=== PATIENT | male | born 1995 | race Two or more races ===

== ENCOUNTER 2017-04-18 12:26 | Emergency (ER) | payer MEDICAID ==
[~2017-04-18] VITALS: Ht 170.2 cm; Wt 65.8 kg
[2017-04-18] MEDS ORDERED: IBUPROFEN600 MG ORAL (12:38)
[2017-04-18 12:46] VITALS: BP 125/68
[2017-04-18 12:47] VITALS: BP 125/68
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
--- NOTE | 2017-04-19 11:16 | Cardiology Report ---
APPROVED REPORT EKG Measurement Heart [id number] Normal sinus rhythm Normal ECG
== END 2017-04-18 12:48 | disposition home or self-care (01) ==
LOC: EMR 12:36
DX: R07.89 Other chest pain (principal)
CPT/HCPCS: 93005; 99284

== ENCOUNTER 2017-09-13 06:52 | Emergency (ER) | payer MEDICAID, OTHER ==
[~2017-09-13] VITALS: Ht 177.8 cm; Wt 90.7 kg
[~2017-09-13 06:52] MED LIST: IBUPROFEN600 MG ORAL
[2017-09-13] MEDS ORDERED: NKM (07:01)
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
[2017-09-13] MEDS ORDERED: IBUPROFEN600 MG ORAL (07:24)
[2017-09-13] MEDS ORDERED: Tetanus/Diptheria/Pertussis Vaccine 0.5ml Syr IM ONE (07:30)
[2017-09-13 07:45] VITALS: BP 118/73
[2017-09-13 07:57] VITALS: BP 118/73
--- NOTE | 2017-09-13 09:27 | Diagnostic Imaging Report ---
Indication: Left wrist pain Technique: XRAY WRIST MIN 3V LEFT Comparison: None Findings: There is no radiographically evident fracture or dislocation. Bone mineralization is normal. Soft tissues are grossly unremarkable. Impression: No radiographically evident fracture or dislocation. If there is clinical concern for radiographically occult scaphoid injury, followup/further evaluation recommended.
== END 2017-09-13 07:45 | disposition home or self-care (01) ==
LOC: EMR 07:30
DX: S60.212A Contusion of left wrist, initial encounter (principal); S50.812A Abrasion of left forearm, initial encounter; Y04.2XXA Assault by strike against or bumped into by another person, initial encounter; Y92.89 Other specified places as the place of occurrence of the external cause; Y99.0 Civilian activity done for income or pay
CPT/HCPCS: 90471; 90715; 99283

== ENCOUNTER 2018-07-20 05:35 | Emergency (ER) | payer MEDICAID, OTHER ==
[~2018-07-20] VITALS: Ht 177.8 cm; Wt 102.1 kg
[~2018-07-20 05:35] MED LIST changes: +NKM
[2018-07-20 05:59] VITALS: BP 159/100
[2018-07-20 06:47] LABS: ANION GAP 7 mmol/L (5-15); BLOOD UREA NITROGEN 14 mg/dL (7-18); CALCIUM 9.1 MG/DL (8.5-10.1); CARBON DIOXIDE 30 MMOL/L (21-32); CHLORIDE 103 MMOL/L (98-107); CREATININE 0.9 MG/DL (0.55-1.30); POTASSIUM 3.9 MMOL/L (3.5-5.1); SODIUM 139 MMOL/L (136-145)
[2018-07-20 06:51] LABS: APPEARANCE,URINE CLEAR; BILIRUBIN, URINE NEGATIVE (NEGATIVE); GLUCOSE, URINE (UA) NEGATIVE (NEGATIVE); KETONES,URINE NEGATIVE (NEGATIVE); LEUKOCYTE ESTERASE ,URINE NEGATIVE (NEGATIVE); NITRITE,URINE NEGATIVE (NEGATIVE); PH,URINE 5 (4.5-8.0); PROTEIN,URINE 4+ (NEGATIVE); UROBILINOGEN,URINE NORMAL MG/DL (0.0-1.0)
[2018-07-20 07:00] VITALS: BP 127/78
[2018-07-20] MEDS ORDERED: ZOFRAN4 MG ORAL (07:02)
[2018-07-20 07:03] LABS: BASOPHILS % (AUTO) 1.4 % (0.0-2.0); EOSINOPHILS % (AUTO) 2.1 % (0.0-3.0); HEMATOCRIT 50.9 % (42.0-52.0); HEMOGLOBIN 17.4 G/DL (14.2-18.0); LYMPHOCYTES % (AUTO) 23.9 % (20.0-45.0); MEAN CORPUSCULAR VOLUME 88 FL (80-99); MONOCYTES % (AUTO) 7.4 % (1.0-10.0); NEUTROPHILS % (AUTO) 65.1 % (45.0-75.0); PLATELET COUNT 359 K/UL (150-450); RED BLOOD COUNT 5.78 M/UL (4.70-6.10); RED CELL DISTRIBUTION WIDTH 11.7 % (11.6-14.8); WHITE BLOOD COUNT 11.2 K/UL (4.8-10.8)
--- NOTE | 2018-07-20 07:03 | Emergency Room Report ---
History of Present Illness General Chief Complaint: Dizziness Source: Patient Present Illness HPI Is a 23-year-old male with no past mental history. He works in security here. Around 4 AM he felt dizzy and lightheaded. [place] nauseous but no vomiting. No new fever or chills. No diarrhea. When he checked his blood pressure was elevated. Worse with walking. Never had this before. Allergies: Coded Allergies: No Known Allergies (Unverified , 04/18/17) Patient History Past Medical History: see triage record, old chart reviewed Past Surgical History: none Pertinent Family History: HTN Social History: Denies: smoking Immunizations: UTD Reviewed Nursing Documentation: PMH: Agreed; PSxH: Agreed Nursing Documentation-PMH Past Medical History: No Stated History Review of Systems Eye: Denies: eye pain, blurred vision ENT: Denies: ear pain, nose congestion, throat swelling Respiratory: Denies: cough, shortness of breath Cardiovascular: Denies: chest pain, palpitations Gastrointestinal: Reports: nausea; Denies: abdominal pain, diarrhea, vomiting Musculoskeletal: Denies: back pain, joint pain Skin: Denies: rash Neurological: Denies: headache, numbness Endocrine: Denies: increased thirst, increased urine Hematologic/Lymphatic: Denies: easy bruising All Other Systems: negative except mentioned in HPI Physical Exam Vital Signs Date Time Temp Pulse Resp B/P (MAP) Pulse Ox O2 Delivery O2 Flow Rate FiO2 07/20/18 05:48 98.3 88 18 159/100 95 Room Air 98.2 vitals with high blood pressure Sp02 EP Interpretation: reviewed, normal General Appearance: well appearing, no apparent distress, alert Head: normocephalic, atraumatic Eyes: bilateral eye PERRL, bilateral eye EOMI ENT: hearing grossly normal, normal pharynx Neck: full range of motion, supple, no meningismus Respiratory: chest non-tender, lungs clear, normal breath sounds Cardiovascular #1: regular rate, rhythm, no murmur Gastrointestinal: normal bowel sounds, non tender, no mass, no organomegaly, no bruit, non-distended Musculoskeletal: back normal, gait/station normal, normal range of motion Psychiatric: mood/affect normal Skin: warm/dry Medical Decision Making Diagnostic Impression: Primary Impression: Dizziness of unknown cause ER Course Patient with dizziness and nausea. No focal deficit. No evidence of TIA or CVA. Blood pressure improved. Now normal. May be early gastroenteritis or viral illness. He felt better. We'll discharge home. Lab Results Impression labs normal Rhythm Strip Diag. Results Rhythm Strip Time: 07:02 EP Interpretation: yes Rate: 85 Rhythm: NSR, no PVC's, no ectopy Last Vital Signs Date Time Temp Pulse Resp B/P (MAP) Pulse Ox O2 Delivery O2 Flow Rate FiO2 07/20/18 05:59 98.2 90 18 159/100 95 Room Air 98.2 Status: improved Disposition: HOME, SELF-CARE Condition: Improved Scripts Ondansetron (Zofran) 4 Mg Tablet 4 MG ORAL Q6H PRN for Nausea & Vomiting, #10 TAB 0 Refills Prov: Avery Barajas MD 07/20/18 Referrals: NOT CHOSEN IPA/,REFERRING (PCP) Patient Instructions: Dizziness Additional Instructions: Increase fluid. Follow-up your doctor in 2-3 days if not better. Return if worse. Avery Barajas MD Jul 20, 2018 07:03
[2018-07-20 07:05] LABS: COLOR,URINE YELLOW
[2018-07-20 07:27] VITALS: BP 127/78
== END 2018-07-20 07:31 | disposition home or self-care (01) ==
LOC: EMR 06:16
DX: R42 Dizziness and giddiness (principal); I10 Essential (primary) hypertension
CPT/HCPCS: 36415; 80048; 81001; 85025; 96374; 99284; J2405